=== PATIENT | female | born 1975 | race Caucasian/White ===

== ENCOUNTER → 2017-09-14 | Outpatient (CLI) | payer OTHER ==
[~2017-09-14] MED LIST: AMOXICILLIN 8751 TAB PO; BACTROBAN 22GM22 GM NAS; CEFTIN 250250 MG/TAB PO; CHANTIX 0.5MG0.5 MG; CLARITIN 1010 MG/TAB PO; EFFE25TA; KLONOPIN 0.5MG0.5 MG; MEDROL 4MG DOSPA4 MG PO; MOBIC 7.5MG7.5 MG; MOTRIN 800800 MG/TAB; NORCO 325 MG-51 TAB PO; NORCO 325 MG-7.1 TAB PO; PERCOCET 325 MG1 TA2 PO; PROAIR HFA0.09 MG/AC IH; ZYRTEC5 MG
== END ==
LOC: COL.RAD 10:38
DX: Z02.71 Encounter for disability determination (principal); M47.812 Spondylosis without myelopathy or radiculopathy, cervical region; M50.31 Other cervical disc degeneration, high cervical region

== ENCOUNTER → 2019-07-31 | Outpatient (CLI) | payer OTHER | LOC: COL.RAD 09:14 | DX: M47.812 Spondylosis without myelopathy or radiculopathy, cervical region (principal); G62.9 Polyneuropathy, unspecified; G56.03 Carpal tunnel syndrome, bilateral upper limbs; R20.2 Paresthesia of skin | CPT/HCPCS: A9585 ==